=== PATIENT | female | born 1970 | race Caucasian/White ===

== ENCOUNTER 2023-02-06 09:25 | Emergency (ER) | payer BC, OTHER ==
[2023-02-06 10:19] LABS: ALT (SGPT) 39 U/L (8-55); AST (SGOT) 33 U/L (5-34); Alkaline Phosphatase 93 U/L (40-110); Anion Gap 14 mmol/L (10-20); BUN (Urea Nitrogen) 12 mg/dL (9.8-20.1); Bilirubin, Total 0.9 mg/dL (0.2-1.2); Calc. Creatinine Clearance 0 mL/min (70-130); Calcium 8.9 mg/dL (7.8-10.44); Carbon Dioxide 26 mmol/L (22-29); Chloride 97 mmol/L (98-107); Estimated GFR 78; Globulin 3.4 g/dL (2.4-3.5); Glucose 127 mg/dL (70-105); Hemoglobin 12.2 g/dL (12.0-16.0); Lipase 6 U/L (8-78); Mean Corpuscular HGB CONC 32.2 g/dL (32.0-36.0); Mean Corpuscular Hemoglobin 30.6 pg (27.0-31.0); Mean Corpuscular Volume 94.9 fl (78.0-98.0); Mean Platelet Volume 9.1 fL (7.4-10.4); Platelet Count 182 10x3/uL (130-400); Potassium 3.3 mmol/L (3.5-5.1); Protein, Total 7.4 g/dL (6.0-8.3); RBC Distribution Width 12.3 % (11.5-14.5); Red Blood Cell (RBC) Count 3.98 mill/uL (4.20-5.40); Sodium 134 mmol/L (136-145)
[2023-02-06 10:20] LABS: Band 4 % (5-11); Lymphocytes 10 % (21-51); MDiff Complete? YES; Monocytes 6 % (0-10); Neutrophil 80 % (42-75)
[2023-02-06] MEDS ORDERED: Piperacillin/Tazobactam 3.375 GM VIAL ONE (11:04)
[2023-02-06] MEDS ORDERED: Morphine 4 MG/ML VIAL ONE (11:04)
[2023-02-06] MEDS ORDERED: Ketorolac Tromethamine 30 MG/ML VIAL ONE (11:04)
[2023-02-06] MEDS ORDERED: Sodium Chloride 0.9% 100 ML ONE (11:04)
[2023-02-06] MEDS ORDERED: Ondansetron PF 4 MG/2 ML Vial ONE (11:12)
[2023-02-06 13:18] LABS: Bilirubin Negative (Negative); Blood, Urine Small (Negative); Clarity Cloudy (Clear); Glucose, Urine (Dipstick) Negative (Negative); Ketone, Urine 15 mg/dL (Negative); Leukocyte Small (Negative); Nitrite Negative (Negative); Protein, Urine (Dipstick) 30 mg/dL (Neg-Trace); Urobilinogen 0.2 mg/dL (Less than 2)
[2023-02-06 13:23] LABS: Pregnancy Test - Urine (BHCG) Negative (Negative); Pregu Control Background? CLEAR/WHITE (CLR/WHITE); Pregu Control Bar Appear? YES (CONTROL BAR); Specific Gravity 1.037 (1.002-1.036); Specific Gravity, Urine 1.037 (1.002-1.036)
[2023-02-06 13:31] LABS: Bacteria/HPF 2+ HPF (None Seen); CAUTI Indications for Culture Fever or rigors; RBC/HPF 0-3 HPF (0-3); Squamous Epithelial 0-3 HPF (0-3)
[2023-02-06 13:32] LABS: Urine Culture Reflex Yes Yes
== END 2023-02-06 14:30 | disposition left against medical advice (07) ==
LOC: BURERS 09:25
DX: K35.32 Acute appendicitis with perforation, localized peritonitis, and gangrene, without abscess (principal); A41.9 Sepsis, unspecified organism; E03.9 Hypothyroidism, unspecified; Z79.899 Other long term (current) drug therapy
CPT/HCPCS: 36415; 74177; 80053; 81001; 81025; 83605; 83690; 85025; 87040; 87076; 87086; 87804; 96361; 96374; 96375; J1885; J2270; J2405; J2543; J3490